=== PATIENT | female | born 1955 | race Caucasian/White ===

== ENCOUNTER → 2021-08-15 14:18 | Outpatient (BNVA) | payer MEDICARE, SELFPAY | PROVIDERS: Visit Provider Family Medicine Adult Medicine | DX: E11.9 Type 2 diabetes mellitus without complications (principal); E66.9 Obesity, unspecified; I10 Essential (primary) hypertension; Z13.6 Encounter for screening for cardiovascular disorders | CPT/HCPCS: 80053; 83036; 84443; 85025 ==

== ENCOUNTER → 2022-02-13 12:15 | Outpatient (BNVA) | payer MEDICARE, SELFPAY | PROVIDERS: PCP Family Medicine Adult Medicine; Visit Provider Internal Medicine | DX: R07.9 Chest pain, unspecified (principal); I10 Essential (primary) hypertension; E11.9 Type 2 diabetes mellitus without complications; Z87.891 Personal history of nicotine dependence; Z79.84 Long term (current) use of oral hypoglycemic drugs | CPT/HCPCS: 99203; 99204 ==

== ENCOUNTER 2022-04-17 07:34 | Outpatient (CLI) | payer MEDICARE, SELFPAY ==
--- NOTE | 2022-04-17 | ECG_ITS ---
[facility] Test Date: 2022-04-17 Pat Name: Taylor Fuentes Department: Room: Gender: Female Electrician Front: : 1955 Requested By: Geovani Martinez Order Number: [id number] Hebert MD: Geovani Martinez M.D. Interpretive Statements NAME OF STUDY: LEXISCAN SESTAMIBI STRESS TEST INDICATION: [Chest Pain] Procedure: At the baseline, the blood pressure was 183/73 mmHg with a heart rate of 59 bpm. The electrocardiogram showed sinus bradycardia, normal axis with normal ST and T's. The Lexiscan was infused over a period of 20 seconds. A total of 0.4 mg of Lexiscan was infused. The stress phase was continued for a total of 5 minutes. Heart rate was at the end of stress phase was 76 bpm and a blood pressure of 180/88 mmHg. The EKG at the peak infusion revealed since normal sinus rhythm with no significant ST-T wave changes. Sestamibi was injected 20 seconds after the Lexiscan infusion. Blood pressure at the end of recovery phase was 170/36 mmHg with a heart rate of 73 bpm. Conclusion: 1. Normal EKG response to Lexiscan infusion 2. No Lexiscan induced chest pain or cardiac arrhythmia. 3. Normal blood pressure and heart rate response. 4. Sestamibi/sestamibi perfusion scan pending; see separate report. Electronically Signed On 04-29-2022 21:26:22 CDT by Geovani Martinez M.D. [id number]
[2022-04-17 07:51] VITALS: BMI 32.8
--- NOTE | 2022-04-17 08:13 | NMCV_ITS ---
[facility] [place] perf SPECT r/s* [id number] Taylor Fuentes Age: 67 Gender: F : 1955 Exam Date: 04/17/2022 09:14 Ordering Phys: Geovani Martinez M.D ([email or web address]) Technologist: ANA MARIA Coronado Exam Location: [facility] Indications: CHEST PAIN STRESS TEST [facility] IMAGE PROTOCOL Rest/Stress 1 Lexiscan Day Radiopharmaceutical Dose (mCi) Administration Site Administered by Rest: Tc-99m 10.9 IV ANA MARIA Paz Sestamibi Stress:Tc-99m 32.9 IV ANA MARIA Paz Sestamibi Rest: 17-Apr-2022 60 Discovery 630 Stress: 17-Apr-2022 30 Discovery 630 0.4mg Lexiscan. Images obtained in supine and prone position. SPECT RESULTS Technical Quality: Excellent Raw Data Analysis: Normal Image Corrections: No attenuation or motion correction applied Summed Stress Score: 2 Summed Rest Score: 1 Summed Difference Score: 1 PERFUSION FINDINGS There is a small in size, fixed perfusion defect noted in the inferolateral wall. 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 FUNCTIONAL RESULTS (calculated via Gated SPECT) Stress Image LV EF (%): 79 Stress EDV (mL):61 TID: 0.92 Stress ESV (mL):13 FUNCTIONAL FINDINGS: There is normal left ventricular systolic function. IMPRESSIONS 1. 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 No evidence of ischemia 2. LV systolic function is normal. Geovani Martinez MD (Electronically Signed) Final Date: 17 April 2022 15:02 S
[2022-04-17 10:19] VITALS: BP 132/76; PULSE 78
== END 2022-04-17 07:35 | disposition home or self-care (01) ==
PROVIDERS: PCP Family Medicine Adult Medicine; Visit Provider Internal Medicine
DX: I25.2 Old myocardial infarction (principal); R07.9 Chest pain, unspecified
CPT/HCPCS: 78452; 93017; A9500

== ENCOUNTER 2022-04-25 12:31 | Outpatient (CLI) | payer MEDICARE, SELFPAY ==
--- NOTE | 2022-04-25 12:45 | USCV_ITS ---
Taylor Fuentes Age: 67 Gender: F : 1955 Exam Date: 04/25/2022 13:16 Ordering Phys: Geovani Martinez M.D ([email or web address]) Technologist: Exam Location: [facility] [place] Indication: chest pain BP: 140 / 80 HR: 68 Rhythm: Sinus Technical Quality: Adequate MEASUREMENTS (Male / Female) Normal Values 2D ECHO LV Diastolic Diameter PLAX 3.2 cm 4.2 - 5.9 / 3.9 - 5.3 cm LV Systolic Diameter PLAX 2.7 cm IVS Diastolic Thickness 1.2 cm 0.6 - 1.0 / 0.6 - 0.9 cm IVS Systolic Thickness 1.5 cm LVPW Diastolic Thickness 1.1 cm 0.6 - 1.0 / 0.6 - 0.9 cm LVPW Systolic Thickness 1.3 cm LVOT Diameter 2.0 cm LV Ejection Fraction 2D Teich 10.4 % LV Ejection Fraction MOD 2C 57.7 % LV Ejection Fraction 2C AL 56.9 % LA Diameter 3.5 cm Aorta at Sinotubular Diameter 2.6 cm IVC Diameter 1.0 cm M-MODE Aortic Annulus Diameter 3.0 cm LA Ao Ratio MM 1.1 MV E Point Septal Separation 1.0 cm DOPPLER AV Peak Velocity 167.0 cm/s LVOT Peak Velocity 97.0 cm/s AV Area Cont Eq vti 2.2 cm squared AV Area Cont Eq pk 1.9 cm squared MV Area PHT 3.3 cm squared Mitral E to A Ratio 1.0 MV E' Velocity 58.5 cm/s Mitral E to MV E' Ratio 16.4 Mitral E to LV E' Lateral Ratio 15.4 Mitral E to LV E' Septal Ratio 17.7 TR Peak Velocity 262.3 cm/s TR Peak Gradient 27.5 mmHg TV Peak E Velocity 92.0 cm/s Right Atrial Pressure 3.0 mmHg Pulmonary Artery Systolic Pressu 30.5 mmHg RV Acceleration Time 0.1 s FINDINGS Left Ventricle Left ventricle is normal in size. LV systolic function is normal with EF of 55 to 60%. No regional wall motion abnormalities are seen. Diastolic function is abnormal. Right Ventricle Normal in size and function Right Atrium Normal in size Left Atrium Mildly dilated Mitral Valve Severe mitral annular calcification is seen. Mild mitral regurgitation. Aortic Valve Aortic valve is thickened. No significant stenosis or regurgitation seen. Tricuspid Valve Mild to moderate tricuspid regurgitation. RVSP is 40 to 45 mmHg. This is consistent with mild pulmonary hypertension. Pulmonic Valve Not well visualized Pericardium Normal Aorta Normal in size IVC CONCLUSIONS LV systolic function is normal with EF of 55-60% Diastolic function is abnormal Mildly dilated left atrium Severe mitral annular calcification. Mild mitral regurgitation Mild to moderate tricuspid regurgitation. Mild pulmonary hypertension No comparison studies are available Geovani Martinez MD (Electronically Signed) Final Date: 09 May 2022 10:33 S
== END 2022-04-25 12:32 | disposition home or self-care (01) ==
LOC: RAD 12:32
PROVIDERS: PCP Family Medicine Adult Medicine; Visit Provider Internal Medicine
DX: I08.1 Rheumatic disorders of both mitral and tricuspid valves (principal); R07.9 Chest pain, unspecified
CPT/HCPCS: 93306

== ENCOUNTER → 2022-07-04 13:55 | Outpatient (BNVA) | payer MEDICARE, SELFPAY | PROVIDERS: PCP Family Medicine Adult Medicine; Visit Provider Internal Medicine | DX: R07.9 Chest pain, unspecified (principal); I10 Essential (primary) hypertension; E11.9 Type 2 diabetes mellitus without complications; Z79.84 Long term (current) use of oral hypoglycemic drugs; Z87.891 Personal history of nicotine dependence | CPT/HCPCS: 99213 ==

== ENCOUNTER → 2023-04-03 14:36 | Outpatient (BNVA) | payer MEDICARE, SELFPAY | PROVIDERS: PCP Family Medicine Adult Medicine; Visit Provider Internal Medicine | DX: R07.9 Chest pain, unspecified (principal); I10 Essential (primary) hypertension; E11.9 Type 2 diabetes mellitus without complications; Z87.891 Personal history of nicotine dependence; Z79.84 Long term (current) use of oral hypoglycemic drugs | CPT/HCPCS: 99214 ==

== ENCOUNTER → 2024-04-01 13:17 | Outpatient (BNVA) | payer MEDICARE, SELFPAY | PROVIDERS: PCP Family Medicine Adult Medicine; Visit Provider Internal Medicine | DX: R07.9 Chest pain, unspecified (principal); I10 Essential (primary) hypertension; E11.9 Type 2 diabetes mellitus without complications; Z87.891 Personal history of nicotine dependence | CPT/HCPCS: 99213 ==

== ENCOUNTER → 2024-04-10 08:04 | Outpatient (BNVA) | payer MEDICARE, SELFPAY | PROVIDERS: PCP Family Medicine Adult Medicine; Visit Provider Family Medicine Adult Medicine | DX: I10 Essential (primary) hypertension (principal); E11.9 Type 2 diabetes mellitus without complications | CPT/HCPCS: 80061; 83036; 84443; 85025 ==

== ENCOUNTER → 2025-03-08 09:36 | Outpatient (BNVA) | payer MEDICARE, SELFPAY | PROVIDERS: PCP Family Medicine; Visit Provider Family Medicine | DX: E03.8 Other specified hypothyroidism (principal); E11.9 Type 2 diabetes mellitus without complications; I10 Essential (primary) hypertension; K21.00 Gastro-esophageal reflux disease with esophagitis, without bleeding | CPT/HCPCS: 80053; 80061; 82043; 83036; 84439; 84443; 85025; 87338 ==

== ENCOUNTER 2025-03-12 16:05 | Outpatient (CLI) | payer MEDICARE, SELFPAY ==
--- NOTE | 2025-03-12 16:15 | USR_ITS ---
PROCEDURE INFORMATION: Exam: US Duplex Bilateral Lower Extremity Arteries Exam date and time: 03/12/2025 4:19 PM Age: 69 years old Clinical indication: Condition or disease; Other: Claudication; Additional info: Intermittent claudication, with janel TECHNIQUE: Imaging protocol: Real-time ultrasound scan of the arteries of the bilateral lower extremities with 2-D macario scale, color Doppler flow and spectral waveform analysis. Images documented and saved. COMPARISON: No relevant prior studies available. FINDINGS: Right common femoral artery: No occlusion. There is narrowing. Increased flow velocity in the area of the narrowing. No measurement taken proximal to the narrowed segment. However comparison to low velocity on the left would indicate a moderate stenosis in the 50-75%. Monophasic waveforms Right superficial femoral artery: No occlusion or significant stenosis. Monophasic waveforms. Right popliteal artery: No occlusion or significant stenosis. Monophasic waveforms. Right calf/foot arteries: No occlusion or significant stenosis in the visualized arteries. Monophasic waveforms. Left common femoral artery: No occlusion or significant stenosis. Monophasic waveforms. Left superficial femoral artery: No occlusion or significant stenosis. Monophasic waveforms. Left popliteal artery: No occlusion or significant stenosis. Monophasic waveforms. Left calf/foot arteries: No occlusion or significant stenosis in the visualized arteries. Monophasic waveforms. ANKLE-BRACHIAL INDICES: Right: 0.56 . Moderate arterial disease. Left: 0.48. Severe arterial disease. US/CV arterial duplex [facility] [id number] IMPRESSION: Findings would be consistent with diffuse arterial disease right and left lower extremity, moderate on the right and severe on the left. Stenosis right common femoral artery in the moderate range 50-75%.
== END 2025-03-12 16:06 | disposition home or self-care (01) ==
LOC: RAD 16:07
PROVIDERS: PCP Family Medicine; Visit Provider Family Medicine
DX: I73.9 Peripheral vascular disease, unspecified (principal)
CPT/HCPCS: 93925

== ENCOUNTER → 2025-03-30 13:12 | Outpatient (BNVA) | payer MEDICARE, SELFPAY | PROVIDERS: PCP Family Medicine; Visit Provider Internal Medicine | DX: I73.9 Peripheral vascular disease, unspecified (principal); I10 Essential (primary) hypertension; E11.9 Type 2 diabetes mellitus without complications; Z79.84 Long term (current) use of oral hypoglycemic drugs; Z87.891 Personal history of nicotine dependence | CPT/HCPCS: 99214 ==